=== PATIENT | male | born 1995 | race Two or more races ===

== ENCOUNTER 2024-10-10 22:03 | Emergency (ER) | payer OTHER, SELFPAY ==
[2024-10-10 22:49] VITALS: BP 136/86; PULSE 82; RESP 18; TEMP 37; O2SAT 98
--- NOTE | 2024-10-10 22:51 | XR_ITS ---
Examination: CT chest, without intravenous contrast. Sagittal and coronal 2-D reconstructions. Exam date and time: October 10, 2024 11:50 PM INDICATIONS: Patient fell off a horse 12 noon today with injury to the chest, chest pain clavicle pain CTDI:vol (mGy) 14 DLP: (mGycm) 577 Technique: Multiple 3.0 mm axial sections of the chest to been obtained. Bone and lung density settings are obtained. Sagittal and coronal 2-D reconstructions have been obtained. Low dose protocols were performed. One or more of the following dose reduction techniques were used; automated exposure control, adjustment of the mA and/or KV according to patient size, use of iterative reconstruction technique. Findings: Angulated fracture distal right clavicle without offset Soft tissue contusion anterior to the right clavicle Thoracic aorta pulmonary arteries intact on this noncontrast study No pneumothorax pulmonary contusion or hemothorax Ribs appear intact as well as sternum and thoracic vertebral bodies IMPRESSION: Acute fracture distal right clavicle No pneumothorax pulmonary contusion or hemothorax
[2024-10-10] MEDS: ONDANSETRON ODT 4 MG TABRAP PO (23:00)
[2024-10-10] MEDS: HYDROcodone/APAP 10/325 TAB PO (23:00)
--- NOTE | 2024-10-10 23:05 | EDNOTE_ITS ---
ED Fall Injury RME/HPI General Chief Complaint: Fall Stated Complaint: FELL FROM HORSE AT 1200, C/O RIGHT SHOULDER PAIN Time Seen by Provider: 10/10/24 22:44 Arrival date/time: 10/10/24 22:03 28 year old male present to emergency room with c/o of shoulder/chest injury yesterday after falling off a horse. Pt denies any head/neck, back or abd pain. no loc or syncope episode LOCATION: chest SEVERITY: Symptoms are described as being severe with limitations on activities of daily living CONTEXT: The patient is unable to identify any inciting events. DURATION/TIMING: The symptoms started approximately1 day ASSOCIATED SYMPTOMS: The patient is unable to identify any other associated symptoms. MODIFYING FACTORS: The patient is unable to identify any alleviating or aggravating symptoms. PERTINENT ROS: no fevers, no cough, no pleuritic pain, no ripping or tearing sensations, denies any lower extremity edema and no unilateral swelling, no shortness of breath no nausea,vomiting, diarrhea, no dizziness/headache no rash no loc/syncope episode no abd/back pain REVIEW OF SYSTEMS: See History of Present Illness - with the exception of those mentioned in the history of present illness, all other systems reviewed and reported as negative GENERAL: In general the patient is awake, interactive, in an emergency department gurney. HEAD/EYES/EARS/NOSE/THROAT: normo-cephalic, atraumatic, mucus membranes are moist, anicteric, palpebral conjunctiva is pink, trachea is midline. CARDIOVASCULAR: right upper chest + brusing noted. no shoulder tenderness, regular rate and regular rhythm, no murmurs, heart sounds are not distant, strong pulses in all four extremities that are equal and symmetric bilateral upper and lower extremities, normal capillary refill. CHEST/PULMONARY: normal chest rise and fall, good air movement, clear to auscultation bilaterally, normal inspiratory to expiratory ratios without evidence of respiratory distress. NECK: No midline/Paraspinal tenderness, no step off ROM/Strenght intact No Kernig and bruzinski sign. No trauma ABDOMEN: soft, not tender, no masses appreciated BACK: normal range of motion without pain. NEUROLOGICAL: cranio-facial features are symmetric, moves all four extremities equally without obvious limitations or weakness. EXTREMITY: no tenderness to palpation over the long bones or large joints of the bilateral upper and lower extremities, no joint swelling, no joint erythema, no signs of trauma, no unilateral leg swelling and no peripheral edema. SKIN: warm, dry, well-perfused, no jaundice, no rash, no telangiectasias or petechia. PSYCH: calm, cooperative, no evidence of psychosis or agitation Related Data Previous Rx's ?Medication ?Instructions ?Recorded ibuprofen 600 mg tablet 600 mg PO Q8H PRN fever or p ain 05/11/23 #30 tabs ibuprofen 800 mg tablet (IBU) 800 mg PO TID PRN pain # 30 tabs 10/11/24 Allergies Allergy/AdvReac Type Severity Reaction Status Date / Time No Known Allergies Allergy Verified 10/10/24 22:04 Course Course Course Narrative: CT chest to rule out fracture vs pulumatory contusion Quality Measures none Orders Category Date Time Status sling [Splint / Immobilizer] STAT Care 10/10/24 23:[address] chest wo con Stat Exams 10/10/24 22:51 Taken HYDROcodone/APAP 10/325 [[place] 10/325] Med 10/10/24 22:52 Discontinued 1 tab PO X1 ONE Ondansetron Odt [Zofran Odt] Med 10/10/24 22:52 Discontinued 4 mg PO X1 ONE Reevaluation(s) Reevaluation #1: pt is feeling better Vital Signs Vital signs: Vital Signs Temperature 98.6 F 10/10/24 22:49 Pulse Rate 82 10/10/24 22:49 Respiratory Rate 18 10/10/24 22:49 Blood Pressure 136/86 H 10/10/24 22:49 Pulse Oximetry (%) 98 10/10/24 22:49 Oxygen Delivery Method Room Air 10/10/24 22:49 Fall Patient data External records reviewed:: [facility] previous records Clinical information provided by:: patient Social determinants that could affect healthcare access:: none Patient has the following chronic illnesses:: as stated in chart How is presenting disease/condition affected by chronic disease/condition?: uneffected by Evaluation data The following diagnostics were reviewed and interpreted by me:: radiology exam(s) Lab and/or radiology exams considered but not ordered:: n/a Interpretation Summary: CT scan of the chest without intravenous contrast (axial sections with sagittal and coronal reformats) October 10, 2024 2350 hours Clinical History: Right upper chest bruising status post fall off horse No prior study available for comparison Findings Mild biapical pleural thickening is seen. There is no pleural effusion or pneumothorax. No evidence of mediastinal hematoma on this noncontrast study. The thoracic aorta is unremarkable. There is no pericardial effusion. T There is a mildly displaced fracture of the distal right clavicle with surrounding chest wall soft tissue contusion. No obvious separation of the acromioclavicular joint. The right glenohumeral joint is unremarkable. Mild rightward curvature of the thoracic spine is seen. Diffuse osteopenia is notedThe visualized upper abdominal viscera are unremarkable. Impression: No lung contusion or pneumothorax. Mildly displaced fracture of the distal right clavicle with surrounding chest wall soft tissue contusion. Diffuse osteopenia. Other findings as described above. Medications / Prescriptions Medications or Prescriptions considered but not ordered:: n/a Medication administrations:: Medication Administration History Discontinued Medications Hydrocodone Bitart/Acetaminophen (Hydrocodone/Apap 10/325 Tab) 1 tab PO X1 ONE Stop: 10/10/24 22:53 Last Admin: 10/10/24 23:00 Dose: 1 tab Documented By: RUIZ Ondansetron HCl (Ondansetron Odt 4 Mg Tabrap) 4 mg PO X1 ONE; Protocol Stop: 10/10/24 22:53 Last Admin: 10/10/24 23:00 Dose: 4 mg Documented By: RUIZ as state above Consultations Consultation(s) initiated? (list below): No Diagnosis Fall Differential Diagnosis: other (fracture vs contusion ) Most likely diagnosis given after review of the tests above:: clavicle fracture chest wall contusion Admission Indicated Admission indicated?: not indicated Admission Request Was there a request for admission?: No Disposition Plan Disposition Plan: Discharge Discharge Attestation Discharge Attestation: The patient and all family members were given an opportunity to ask questions and understood the discharge instructions. Discharge instructions specifically effects, indications for sooner follow up or return to the emergency department, and the expected course of current diagnosis. Patient condition: Stable Discharge Plan Plan Patient Disposition: HOME (Self Care) Prescriptions/Referrals Prescriptions/Med Rec: New ibuprofen [IBU] 800 mg tablet 800 mg PO TID PRN (Reason: pain) Qty: 30 1RF No Action ibuprofen 600 mg tablet 600 mg PO Q8H PRN (Reason: fever or pain) Qty: 30 0RF Referrals: No Primary/Family,Physician [Primary Care Provider] - In 1 week Problem List Clinical Impression: Clavicle fracture, Chest wall contusion Patient/Caregiver Discharge Instructions Education Materials: ED Fracture, Clavicle, ED Chest Wall Contusion Print Language: Chinese Stand Alone Forms: [facility] Award Info., Patient Portal Info Letter
--- NOTE | 2024-10-11 02:12 | PRELIM_ITS ---
CT scan of the chest without intravenous contrast (axial sections with sagittal and coronal reformats) October 10, 2024 2350 hours Clinical History: Right upper chest bruising status post fall off horse No prior study available for comparison Findings Mild biapical pleural thickening is seen. There is no pleural effusion or pneumothorax. No evidence of mediastinal hematoma on this noncontrast study. The thoracic aorta is unremarkable. There is no pericardial effusion. T There is a mildly displaced fracture of the distal right clavicle with surrounding chest wall soft tissue contusion. No obvious separation of the acromioclavicular joint. The right glenohumeral joint is unremarkable. Mild rightward curvature of the thoracic spine is seen. Diffuse osteopenia is notedThe visualized upper abdominal viscera are unremarkable. Impression: No lung contusion or pneumothorax. Mildly displaced fracture of the distal right clavicle with surrounding chest wall soft tissue contusion. Diffuse osteopenia. Other findings as described above. Report Electronically Signed By: Paco Duarte 10/11/2024 2:12:16 AM [EST]
[2024-10-11 03:08] VITALS: RESP 16
== END 2024-10-11 03:08 | disposition home or self-care (01) ==
PROVIDERS: Emergency Provider Emergency Medicine
DX: S42.031A Displaced fracture of lateral end of right clavicle, initial encounter for closed fracture (principal); S20.219A Contusion of unspecified front wall of thorax, initial encounter; V80.010A Animal-rider injured by fall from or being thrown from horse in noncollision accident, initial encounter; Y93.52 Activity, horseback riding
CPT/HCPCS: 71250; 99284; A4565; Q0162; A9270